=== PATIENT | male | born 1945 | race Caucasian/White ===

== ENCOUNTER 2023-12-16 09:00 | Day surgery (SDC) | payer BC, MEDICARE ==
[~2023-12-16 09:00] MED LIST: Propofol 200 MG/20 ML SDV ONE
[2023-12-16] MEDS ORDERED: Sodium Chloride 0.9% 10 ML Syringe FLUSH PRN (09:15)
[2023-12-16] MEDS: Lactated Ringers 1,000 ML IV SCH (09:33)
[2023-12-16] MEDS ORDERED: Propofol 200 MG/20 ML SDV ONE (10:42)
[2023-12-16 11:09] VITALS: BP 106/60; PULSE 54
== END 2023-12-16 12:05 | disposition home or self-care (01) ==
LOC: LL.SDS 09:00
PROVIDERS: ATTEND Surgery
DX: Z12.11 Encounter for screening for malignant neoplasm of colon (principal); D12.3 Benign neoplasm of transverse colon; D12.5 Benign neoplasm of sigmoid colon; D12.8 Benign neoplasm of rectum; I10 Essential (primary) hypertension; N40.1 Benign prostatic hyperplasia with lower urinary tract symptoms; E66.9 Obesity, unspecified; E87.6 Hypokalemia; N32.81 Overactive bladder; I87.2 Venous insufficiency (chronic) (peripheral); Z88.0 Allergy status to penicillin; Z68.37 Body mass index [BMI] 37.0-37.9, adult; Z86.010 Personal history of colon polyps; Z79.899 Other long term (current) drug therapy
CPT/HCPCS: 45385; J2704; J7120